=== PATIENT | female | born 1965 | race Caucasian/White ===

== ENCOUNTER 2019-01-07 06:59 | Day surgery (SDC) | payer MEDICAID ==
[~2019-01-07] VITALS: Ht 167.6 cm; Wt 104.1 kg
[~2019-01-07 06:59] MED LIST: DAPA10TA PO; GEMF600T5 PO; LOSA50TA64 PO; METF-960 PO; METO50 PO; PANT40TA25 PO
[2019-01-07] MEDS ORDERED: 0.9% SODIUM CHLORIDE 10 ML SYRINGE IVP PRN (07:00)
[2019-01-07] MEDS ORDERED: METOPROLOL TARTRATE 50 MG TABLET PO ONE (07:30)
[2019-01-07] MEDS ORDERED: METOPROLOL TARTRATE 50 MG TABLET ONE (07:43)
[2019-01-07 07:50] LABS: ANION GAP 8 mmol/L (8-16); CALCIUM, TOTAL 9.8 mg/dL (8.8-10.5); CARBON DIOXIDE 29 mmol/L (22-29); CHLORIDE 104 mmol/L (98-107); CREATININE 0.71 mg/dL (0.60-1.30); GLOMERULAR FILTR. RATE CALC > 60 mL/min (>60); GLUCOSE,RANDOM 146 mg/dL (70-110); POTASSIUM 3.5 mmol/L (3.5-5.1); SODIUM SERUM 141 mmol/L (136-145); UREA NITROGEN, BLOOD 17 mg/dL (7-18)
== END 2019-01-07 08:25 | disposition home or self-care (01) ==
LOC: SURGERY 06:59 → EDSTATUS 09:00
PROVIDERS: ATTEND Internal Medicine Cardiovascular Disease
DX: R07.9 Chest pain, unspecified (principal); M79.7 Fibromyalgia; M06.9 Rheumatoid arthritis, unspecified; K74.60 Unspecified cirrhosis of liver; E11.9 Type 2 diabetes mellitus without complications; Z88.0 Allergy status to penicillin; Z88.1 Allergy status to other antibiotic agents; Z79.899 Other long term (current) drug therapy; Z90.710 Acquired absence of both cervix and uterus; Z90.49 Acquired absence of other specified parts of digestive tract; Z98.890 Other specified postprocedural states; Z53.8 Procedure and treatment not carried out for other reasons
CPT/HCPCS: 93005